=== PATIENT | male | born 1970 | race Caucasian/White ===

== ENCOUNTER 2016-10-04 06:30 | Day surgery (SDC) | payer OTHER ==
[2016-09-25 14:51] LABS: HEMATOCRIT 36.9 % (40.0-51.0); HEMOGLOBIN 13.5 g/dL (13.6-17.8)
--- NOTE | ~2016-10-04 | OP ---
[facility] Of [place] [address] [facility] [place]. [address] NAME: ALEX ALLEN : 74 STATUS : [place] [facility] [place]#: [id number] AGE: 46 ADM/REG DATE : 10/04/16 MR#: [id number] REPORT SERV DATE: 10/04/16 DICTATED BY: GEOFFREY KNAPP DATE: 10/04/16 REPORT STATUS : Draft TRANSCRIBED BY: MODL DATE: 10/04/16 DATE OF PROCEDURE: 10/04/2016 PREOPERATIVE DIAGNOSES: 1. Nasal septal fracture. 2. Internal and external nasal deformity. 3. Chronic nasal obstruction. 4. Uvular redundancy. 5. Tonsillar hypertrophy. 6. Chronic tonsillitis. POSTOPERATIVE DIAGNOSES: 1. Nasal septal fracture. 2. Internal and external nasal deformity. 3. Chronic nasal obstruction. 4. Uvular redundancy. 5. Tonsillar hypertrophy. 6. Chronic tonsillitis. PROCEDURES: 1. Tonsillectomy. 2. Uvulectomy. 3. Septoplasty. 4. Open reduction of nasal fracture. 5. Bilateral inferior turbinoplasty. SURGEON: Geoffrey Knapp M.D. ANESTHESIA: General. COMPLICATION: None. COUNTS: All counts were correct following the procedure. ESTIMATED BLOOD LOSS: 30 mL. PREOPERATIVE INFORMED CONSENT: We discussed the risks and benefits of the surgery including, but not limited to bleeding, infection, possible saddle nose deformity, possible septal perforation, possible continued external-internal nasal deformity requiring formal open septal rhinoplasty, possible uvulopalatal incompetence, possible postoperative taste distortion, and possible continued snoring despite surgery. He understands the risks and benefits of the surgery, and consent is on the chart. PROCEDURE IN DETAIL: The patient was brought to the operating suite and placed on the operating table in the supine position. General endotracheal anesthesia was initiated without incident. The head and neck were cleaned, prepped and draped in the usual sterile Record Of [address] [place]. [address] NAME: ALEX ALLEN : 74 STATUS : [place] [facility] [place]#: [id number] AGE: 46 ADM/REG DATE : 10/04/16 MR#: [id number] REPORT SERV DATE: 10/04/16 DICTATED BY: GEOFFREY KNAPP DATE: 10/04/16 REPORT STATUS : Draft TRANSCRIBED BY: MODL DATE: 10/04/16 fashion. Following this, a Hanane-Guy retractor was carefully inserted into the oral cavity and used to retract the tongue anteriorly and inferiorly to visualize the oropharynx. Following this, the right superior pole of the tonsil was grasped using a tonsillar tenaculum and retracted medially. Using electrocautery, an incision was made down to the anterior tonsillar pillar. Using sharp and blunt dissection with electrocautery, the tonsil was dissected off the underlying pharyngeal musculature, down to the inferior pole where it was transected and sent for permanent pathology. There was minimal bleeding. In a similar fashion as the right, the left tonsil was removed and sent for permanent pathology. Again, there was minimal bleeding. Suction cautery was then performed using a Deepak dissector and meticulous technique. Meticulous hemostasis was achieved in both tonsillar fossae. The oral cavity was irrigated with sterile saline and suctioned until clear. The patient was taken out of suspension. The Hanane-Guy retractor was removed. The teeth were noted to be in pre-operative condition. The uvula was injected with 3 mL of 1% lidocaine with 1:100,000 epinephrine for hemostasis. Following this, a curved Metzenbaum scissor was used to transect the uvula at its base preserving the posterior mucosa. The mucosal flaps were advanced and closed using interrupted 4-0 chromic suture. Attention was then taken to the nose. The patient was brought to the operating suite and placed on the operating table in the supine position. General endotracheal anesthesia was initiated without incident. The patient's head and neck were cleaned, prepped and draped in the usual sterile fashion. Following this, both sides of the septum and inferior turbinates were injected with 1% Lidocaine with 1:100,000 epinephrine for hemostasis. Approximately 12.0 cc. were used. Following this, a #15 blade scalpel was used to performed a left hemitransfixion incision down to the underlying septal cartilage. A mucoperichondrial flap was raised along the left side of the nasal septum using Chemult and Ilene elevators. The bony cartilaginous junction was using the Ilene elevator and then the mucoperiosteum was raised off both sides of the bony nasal septum. A thin strip of the cartilaginous septum along the maxillary crest was removed using a #15 blade scalpel and a Ilene elevator, allowing the cartilaginous septum to swing back in the midline. The maxillary crest was exposed using the Caballero elevator and removed using the 6.0 mm. straight osteotome. The deviated bony nasal septum was taken down using open Crestline-Gregorio forceps, as well as Marcus forceps. Once the septal deviation had been corrected, the left hemitransfixion incision was closed using interrupted 4-0 chromic suture. The Xomed turbinate shaver was then used to perform submucous resection of both inferior turbinates without difficulty and both inferior turbinates were infractured and both the medial and lateral surfaces were cauterized using the Harmonic scalpel. Both inferior turbinates were then outfractured. Record Of Operation [facility] [address] [facility] [place]. [address] NAME: ALEX ALLEN : 74 STATUS : [place] [facility] [place] PAT#: [id number] AGE: 46 ADM/REG DATE : 10/04/16 MR#: [id number] REPORT SERV DATE: 10/04/16 DICTATED BY: GEOFFREY KNAPP DATE: 10/04/16 REPORT STATUS : Draft TRANSCRIBED BY: MODL DATE: 10/04/16 Breathe-Easy septal splints were then placed on either side of the nasal septum and sutured in the midline using 2-0 nylon suture. The nasopharynx was suctioned free of any blood clots. The standard lateral osteotomies were performed using a 6 mm straight guarded Kneibert osteotome. The nasal bone was then manipulated back into the normal anatomic position. Both internal septal splints as well as the external standard nasal dorsal splint were placed. The patient was then awakened from anesthesia, taken to the recovery room in stable condition. NICK/MARCELLO Geoffrey Knapp M.D. / [id number] CC: Annabella Cedeno
[~2016-10-04 06:30] MED LIST: PROAIR HFA INH; QVAR40 MC1; ZYRTEC ALLGY10 MG PO
== END 2016-10-04 23:59 | disposition home or self-care (01) ==
LOC: MSC 06:30
PROVIDERS: Otolaryngology
PROC: 09BM0ZZ Excision of Nasal Septum, Open Approach (ICD-10-PCS; 2016-10-04)
PROC: 09SM0ZZ Reposition Nasal Septum, Open Approach (ICD-10-PCS; 2016-10-04)
PROC: 0CTPXZZ Resection of Tonsils, External Approach (ICD-10-PCS; principal; 2016-10-04 08:00)
PROC: 0CTNXZZ Resection of Uvula, External Approach (ICD-10-PCS; 2016-10-04 08:00)
DX: S02.2XXA Fracture of nasal bones, initial encounter for closed fracture (principal); M95.0 Acquired deformity of nose; J34.89 Other specified disorders of nose and nasal sinuses; K13.79 Other lesions of oral mucosa; J35.01 Chronic tonsillitis; J34.2 Deviated nasal septum
CPT/HCPCS: 85014; 85018; 88300; 88302; 88304; A9270-GY; J0690; J0735; J2250; J2270; J2405; J2710; J3010